=== PATIENT | female | born 1935 | race Caucasian/White ===

== ENCOUNTER 2017-07-17 21:02 | Observation (INO) | payer MEDICARE ==
--- OUTSIDE RECORDS SUMMARY | 2017-07-17 21:04 | XMS | Clinical Summary ---
:[address] [facility] Address [address] [place] [id number] Phone Care Team Providers Name Role Phone , Primary Care Provider Unavailable Allergies Not on File Current Medications Not on file Active Problems Not on file Social History Tobacco Use Types Packs/Day Years Used Date Never Assessed Sex Assigned at Date Recorded Not on file Last Filed Vital Signs Not on file Plan of Treatment Not on file Results Not on filefrom Last 3 Months
[2017-07-17 21:31] LABS: #Eosinphils 0.2 thou/uL (0.0-0.7); #Lymphocytes 1.5 thou/uL (1.20-3.40); #Monocytes 0.7 thou/uL (0.11-0.59); %Basophils 0.7 % (0.0-1.0); %Eosinophils 2.6 % (0.0-10.0); %Lymphocytes 23.1 % (21.0-51.0); %Monocytes 10.7 % (0.0-10.0); Hematocrit 34.6 % (36.0-47.0); Red Blood Cell (RBC) Count 3.49 mill/uL (4.20-5.40); White Blood Cell (WBC) Count 6.3 thou/uL (4.8-10.8)
[2017-07-17 21:36] LABS: PTT 44.8 SEC (22.9-36.1); Prothrombin Time 15.4 SEC (12.0-14.7)
[2017-07-17 21:55] LABS: ALT (SGPT) 13 U/L (8-55); AST (SGOT) 19 U/L (5-34); Alkaline Phosphatase 136 U/L (40-150); Anion Gap 10 mmol/L (10-20); BUN (Urea Nitrogen) 22 mg/dL (9.8-20.1); Bilirubin, Total 0.7 mg/dL (0.2-1.2); CK (CPK) 18 U/L (29-168); Calc. Creatinine Clearance 0 mL/min (70-130); Calcium 10.9 mg/dL (7.8-10.44); Carbon Dioxide 30 mmol/L (23-31); Chloride 104 mmol/L (98-107); Estimated GFR-MDRD 69; Globulin 3.8 g/dL (2.4-3.5); Lipase 37 U/L (8-78); Protein, Total 7.4 g/dL (6.0-8.3)
[2017-07-17 21:59] LABS: Troponin I Less than 0.010 ng/mL (< 0.028)
--- NOTE | 2017-07-17 22:23 | RAD ---
AP CHEST: Indication: Chest pain. Comparison: 09-04-15, 08-10-16 FINDINGS: Chronic lung changes are similar. No acute airspace opacity or pleural effusion is noted. Cardiomega ly is stable. Lumbar scoliosis similar. IMPRESSION: 1. No acute cardiopulmonary abnormality. 2. Stable chronic lung changes. POS: [facility]
[2017-07-17] MEDS ORDERED: Bisacodyl 5 MG TAB PO PRN (23:34)
[2017-07-17] MEDS ORDERED: Ondansetron ODT 4 MG TAB PO PRN (23:34)
[2017-07-17] MEDS ORDERED: Ondansetron HCl/PF 4 MG/2 ML Vial IVP PRN (23:34)
[2017-07-17] MEDS ORDERED: Acetaminophen 325 MG TAB PO PRN (23:34)
[2017-07-17] MEDS ORDERED: Calcium Carbonate 500 MG ChewTAB PO PRN (23:34)
[2017-07-17] MEDS ORDERED: Nitroglycerin 0.4 MG TAB (25 Tab Bottle) PO PRN (23:34)
[2017-07-17] MEDS ORDERED: Senokot 8.6 MG TAB PO PRN (23:34)
[2017-07-17] MEDS ORDERED: SILVER NITRATE TOP SCH (23:45)
[2017-07-18 00:46] LABS: Troponin I Less than 0.010 ng/mL (< 0.028)
[2017-07-18 02:05] VITALS: BMI 16.8
[2017-07-18] MEDS: Sodium Chloride 0.9% 1,000 ML IV SCH ×2 (02:37→09:53)
[2017-07-18 05:22] LABS: Magnesium 1.9 mg/dL (1.6-2.6)
[2017-07-18 05:29] LABS: Troponin I Less than 0.010 ng/mL (< 0.028)
--- NOTE | 2017-07-18 05:33 | HP-2 ---
CODE STATUS: Full code. PRIMARY CARE PHYSICIAN: [facility]. ATTENDING: Dr. Vandana Chan HISTORIAN: The patient. CHIEF COMPLAINT: Chest pain. HISTORY OF PRESENT ILLNESS: This is an 81-year-old female with past medical history of coronary art jermaine disease, history of atrial fibrillation, history of CVA 5 years ago and hypertension, who presen christian to the ER with chest pain. The patient states the chest pain started about 1 hour prior to pres entation to the ER this evening. The pain is central and substernal in nature, nonradiating, pressu re-like and has associated shortness of breath at times. The patient denies any nausea, vomiting, f ever, chills, diaphoresis with these episodes. Of note, the patient had an CT in the past, was unsu re if this feels like that episode. She received aspirin in the ER. PAST MEDICAL HISTORY: 1. Coronary artery disease. 2. History of cerebrovascular accident 5 years ago. 3. History of atrial fibrillation. 4. Hypertension. PAST SURGICAL HISTORY: 1. Ablation x3. 2. Cardiac catheterization. 3. Hysterectomy. ALLERGIES: CODEINE and SULFA. MEDICATIONS: The patient did not bring medical list with her and is unsure of her medications curre ntly at the time of this interview. SOCIAL HISTORY: Denies tobacco, alcohol, or drug use. REVIEW OF SYSTEMS: Ten point review of systems was performed and negative except for as per HPI abo ve. PHYSICAL EXAMINATION: VITAL SIGNS: Blood pressure 186/79, pulse 65, respirations 18, T-max 97.8, pulse ox 99% on room air . GENERAL: Alert, oriented x3, in no acute distress, thin female who is appropriately interactive. EYES: Pupils equal, round, and reactive to light. Extraocular movements intact. Conjunctivae with in normal limits. ENT: Nasal mucosa and oropharynx within normal limits. NECK: Supple, without lymphadenopathy, thyromegaly. CARDIOVASCULAR: Regular rhythm, no murmurs, rubs or gallops. Radial pulses and pedal pulses presen t. LUNGS: Normal effort, no retractions, clear to auscultation bilaterally. SKIN: Warm and dry without cyanosis or lesions. ABDOMEN: Soft, nontender to palpation. Bowel sounds present. No masses or distention appreciated. EXTREMITIES: No clubbing, cyanosis or edema. MUSCULOSKELETAL: Structure and tone within normal limits. Strength 5/5. NEUROLOGIC: No deficits. Sensation within normal limits. Cranial nerves II-XII are intact. GCS 1 5. PSYCHIATRIC: Appropriate. LABORATORY: CBC: White count 6.3, hemoglobin 11.3, hematocrit 34.6, platelets 209. CMP: Sodium 140, potassium 2.6, chloride 104, bicarbonate 30, BUN 22, creatinine 0.8, glucose 105, calcium 10.9, total bilirubin 0.7, AST 19, ALT 13, alkaline phosphatase 136. PT 15.4, PTT 44.8. INR 1.2. Lipase 37. BP 111, CK 18, CK-MB 0.7, troponin less than 0.01 x2. EKG shows flattened T-waves, otherwise normal sinus rhythm. Chest x-ray shows stable cardiomegaly, otherwise no acute disease. ASSESSMENT AND PLAN: This is an 81-year-old female here with chest pain. 1. Atypical chest pain. We will observe on telemetry, trend cardiac enzymes, check magnesium, phos phorus, TSH. We will order stress in the morning based on her heart score of 6 and CHIDI score of 2. Continue aspirin and statin. We will place n.p.o. at midnight. 2. Coronary artery disease. Continue aspirin, statin, and Pradaxa. 3. Atrial fibrillation. Continue Pradaxa and rate controlling medications. 4. Hypertension. Continue home medications once medication reconciliation is performed. We will h old any beta blockers prior stress test in the morning. 5. Prophylaxis. Lovenox. DISPOSITION/LENGTH OF STAY: 1 midnight. Symptomatic medications will be provided. History and physical exam as well as management was discussed with Dr. Vandana Chan.
[2017-07-18] MEDS ORDERED: Ferrous Sulfate 325 MG TAB PO SCH (08:00)
[2017-07-18] MEDS ORDERED: Acetaminophen 325 MG TAB PO PRN (08:15)
[2017-07-18] MEDS ORDERED: Dabigatran 150 mg Capsule PO SCH (09:00)
[2017-07-18] MEDS ORDERED: Non-Formulary Item 1 EACH (Losartan Potassium [Losartan Potassium] 50 MG) PO SCH (09:00)
[2017-07-18] MEDS ORDERED: FLECAINIDE ACETATE 100 MG PO SCH (09:00)
[2017-07-18] MEDS ORDERED: FLU VACC TS2017-18 (>65YR) 0.5 ML SYRINGE IM ONE (09:00)
[2017-07-18] MEDS ORDERED: APIXABAN PO SCH (09:00)
[2017-07-18] MEDS ORDERED: Losartan 25 MG TAB PO SCH (09:00)
[2017-07-18] MEDS ORDERED: Multivit, Therapeutic 1 TAB PO SCH (09:00)
[2017-07-18] MEDS ORDERED: Levothyroxine Sodium 25 MCG TAB PO SCH (09:00)
[2017-07-18] MEDS ORDERED: Pantoprazole 40 MG GRANULES PACKET PO SCH (09:00)
[2017-07-18] MEDS ORDERED: Polyethylene Glycol 3350 17 GM Packet PO SCH (09:00)
[2017-07-18] MEDS ORDERED: Enoxaparin Sodium 30 MG/0.3 ML SYRINGE SC SCH (09:00)
[2017-07-18] MEDS ORDERED: Flecainide 50 MG TAB PO SCH (09:00)
[2017-07-18] MEDS ORDERED: Amiodarone 200 MG TAB PO SCH (09:00)
[2017-07-18] MEDS ORDERED: Docusate 100 MG CAP PO SCH (09:00)
[2017-07-18] MEDS ORDERED: Aspirin 325 MG TAB PO SCH (09:00)
[2017-07-18] MEDS ORDERED: Atorvastatin Calcium 40 MG TAB PO SCH (09:00)
--- NOTE | 2017-07-18 12:45 | HP ---
I reviewed the history and physical of Dr. Shreyas Beckman and agree with his assessment and plan. HISTORY OF PRESENT ILLNESS: Ms. Ivory is a frail appearing 81-year-old white female patient with a history of coronary artery disease and CVA. She presented to the ER with chest pain that started on e hour before presentation. It was described as central substernal in nature and associated with na usea, vomiting or diaphoresis. Her admission EKG showed no acute ischemic changes. PHYSICAL EXAMINATION: GENERAL: She is a very frail appearing woman who speaks very quietly and softly. She has a right f acial droop as a result of previous stroke. VITAL SIGNS: Blood pressure is 180/80, her pulse rate is 65 and regular, respirations 18. She is c urrently afebrile and has a pulse oximetry of 99% on room air. She appears to be alert and oriented . ENT: Right facial droop. CARDIOVASCULAR: PMI is in the fifth intercostal space. S4 gallop. No murmur or rub noted. LUNGS: Breath sounds are diminished, but clear. No respiratory distress. ABDOMEN: Flat, soft. EXTREMITIES: No edema. NEUROLOGIC: Right facial droop. LABORATORY DATA: CBC: White count 6300, hemoglobin 11.3, hematocrit 34.6. Chemistries: Sodium is 140, potassium 2.6, chloride 104, bicarbonate 30, BUN 20, creatinine 0.9. Her troponin is less cherry n 0.01 x2. IMAGING: EKG, no acute ischemic changes. ASSESSMENT: Atypical chest pain in a patient with a history of coronary artery disease. PLAN: Schedule stress test. Given the frailty of this patient, best move of her care were likely b e medical as I doubt she would be a candidate for catheterization or further workup.
[2017-07-18] MEDS ORDERED: ADENOSINE 60 MG/20 ML VIAL ONE (15:36)
[2017-07-18] MEDS ORDERED: hydrALAZINE 20 MG/ML VIAL SLOW IVP SCH (16:45)
--- NOTE | 2017-07-18 16:46 | NM ---
NUCLEAR MEDICINE CARDIAC STRESS TEST WITH EJECTION FRACTION: Date: 07/18/17 HISTORY: Chest pain. History of coronary artery disease, catheterization, heart attack, atrial fibrillation, ablation, CVA, and hypertension. FINDINGS: Stress and rest performed after the intravenous administration of 28 and 9 mCi technetium-99m sestam ibi. No evidence of scar or ischemia. Normal wall motion. Ejection fraction calculated at 79%. IMPRESSION: 1. No evidence of scar or ischemia. 2. Normal ejection fraction of 79%. 3. No dyskinesia. POS: [facility]
[2017-07-18 16:48] VITALS: TEMP 98.2
[2017-07-18 17:57] VITALS: BP 137/81
[2017-07-18] MEDS ORDERED: Atorvastatin Calcium 20 MG TAB PO SCH (21:00)
[2017-07-18] MEDS ORDERED: Mirtazapine 15 MG TAB PO SCH (21:00)
[2017-07-18] MEDS ORDERED: traZODone HCl 50 MG TAB PO SCH (21:00)
--- NOTE | 2017-07-19 03:48 | DIS-2 ---
DATE OF ADMISSION: 07/17/2017 DATE OF DISCHARGE: 07/18/2017 RESIDENT: Redd Crain D.O. ADMITTING ATTENDING: Parminder Palmer M.D. DISCHARGE ATTENDING: Parminder Palmer M.D. CONSULTATIONS: None. PROCEDURES: Nuclear medicine stress test. PRIMARY DIAGNOSIS: Atypical chest pain. SECONDARY DIAGNOSES: Hypertension, coronary artery disease and history of cerebrovascular accident. DISCONTINUED MEDICATIONS: None. DISCHARGE MEDICATIONS: Tylenol 10/325 p.r.n., Remeron 15 mg p.o. at bedtime, MiraLax 17 grams daily, Protonix 40 mg daily, losartan 50 mg daily, levothyroxine 25 mcg daily, Cardizem 240 daily, metoprolol succinate 25 mg daily , Pradaxa 150 mg p.o. daily, flecainide 100 mg b.i.d., trazodone 50 mg p.o. q.a.m., ferrous sulfate 325 mg p.o. daily, Colace 100 mg p.o. daily and atorvastatin 40 mg daily. BRIEF HOSPITAL COURSE: The patient was admitted for a concern with chest pain. On evaluation for cardiac etiology, troponins were negative x3 and the EKG had no findings concerning for cardiac etiology. A stress test was conducted. It found no evidence of scar or ischemia, an ejection fraction 79%, and no dyskinesia. The patient has what appears to be a baseline dementia and difficulty communicating. She complained of some continued chest pain that seemed to be musculoskeletal in nature rather than cardiac. At the time of discharge, there was no evidence or concern of cardiac ischemia and the patient was discharged. DISPOSITION: Stable. DISCHARGE INSTRUCTIONS: 1. Location: Home. 2. Diet: Regular. 3. Activity: Ad chandni. 4. Follow up with PCP within 1 week. CHELA
--- NOTE | 2017-07-21 15:52 | EKG ---
Test Reason : Blood Pressure : / mmHG Vent. Rate : 068 BPM Atrial Rate : 068 BPM P-R Int : 140 ms QRS Dur : 106 ms QT Int : 424 ms P-R-T Axes : 092 -31 082 degrees QTc Int : 450 ms Normal sinus rhythm Left axis deviation Abnormal ECG When compared with ECG of 17-JUL-2017 21:11, (Unconfirmed) AL interval has decreased Non-specific change in ST segment in Anterior leads Nonspecific T wave abnormality now evident in Inferior leads Nonspecific T wave abnormality no longer evident in Anterior leads Confirmed by DR. Beth REZA ([id number]) on 07/21/2017 3:51:55 PM Referred By: CHRISTINA Confirmed By:DR. Beth REZA
--- NOTE | 2017-07-22 18:27 | EKG ---
Test Reason : Blood Pressure : / mmHG Vent. Rate : 068 BPM Atrial Rate : 068 BPM P-R Int : 392 ms QRS Dur : 098 ms QT Int : 408 ms P-R-T Axes : 000 -24 076 degrees QTc Int : 433 ms Sinus rhythm with 1st degree A-V block Incomplete right bundle branch block Nonspecific T wave abnormality Flat T II, III, aVF Abnormal ECG Confirmed by TOSHIA Desai, SKY Cota ([id number]), greeting card editor ARLEEN FONTANA ([id number]) on 07/22/2017 6:26:35 PM Referred By: Confirmed By:SKY POPE M.D.
--- NOTE | 2017-08-02 13:26 | STRESS ---
Acquisition Time: 2017-07-18 13:19:57 Total Exercise Time: 00:04:00 Test Indications: CHEST PAIN Medications: Protocol: ADENOSINE Max HR: 090 BPM 64% of Pred: 139 BPM Max BP: 188/084 mmHG Max Work Load: 1.0 METS RESTING ECG: NORMAL SINUS RHYTHM AT 76 BPM WITH LEFT AXIS DEVIATION AND POOR R-WAVE PROGRESSION SYMPTOMS: SHORTNESS OF BREATH NORMAL BP RESPONSE ECTOPY: RARE PAC'S ECG STRESS: NO SIGNIFICANT CHANGES INTERPRETATION: AWAIT NUCLEAR IMAGES FOR DEFINITIVE DIAGNOSIS Confirmed by LEO ESPOSITO ([id number]), assistant film editor LANCE MOORE ([id number]) on 08/02/2017 1:26:23 PM Referred By: MD Addie VASQUEZ Confirmed By:LEO ESPOSITO
== END 2017-07-18 17:51 | disposition home or self-care (01) ==
LOC: ERS 21:02 → 2NO 22:36
PROVIDERS: ADMIT Family Medicine; ATTEND Family Medicine
DX: R07.89 Other chest pain (principal); I25.10 Atherosclerotic heart disease of native coronary artery without angina pectoris; I10 Essential (primary) hypertension; Z88.5 Allergy status to narcotic agent; Z88.2 Allergy status to sulfonamides; Z86.73 Personal history of transient ischemic attack (TIA), and cerebral infarction without residual deficits; Z79.899 Other long term (current) drug therapy; Z91.048 Other nonmedicinal substance allergy status
CPT/HCPCS: 71010; 78452; 80053; 82550; 82553; 83690; 83735; 83880; 84100; 84443; 84484 ×3; 85025; 85610; 85730; 93005 ×2; 93017; 96374; 99285; A9500; G0378; 36415; 93010; A4216; G8996-GN-CJ; G8997-GN-CJ; J0153; J0360